=== PATIENT | male | born 1980 | race Caucasian/White ===

== ENCOUNTER 2019-11-03 11:46 | Emergency (ER) | payer OTHER ==
[~2019-11-03] VITALS: Ht 177.8 cm; Wt 102.7 kg
[2019-11-03 12:01] VITALS: BP 125/91
--- NOTE | 2019-11-03 14:46 | NUR ---
NA X 1
--- NOTE | 2019-11-03 14:57 | NUR ---
INFORMED BY REGISTRATION STAFF THAT PT SIGNED REQUEST FOR DC FROM TRIAGE. PT LEFT PRIOR TO THIS RN BEING ABLE TO DISCUSS RISKS.
== END 2019-11-03 15:01 | disposition left against medical advice (07) ==
LOC: ED 14:55
DX: M54.9 Dorsalgia, unspecified (principal); Z53.21 Procedure and treatment not carried out due to patient leaving prior to being seen by health care provider

== ENCOUNTER → 2019-11-03 | Outpatient (CLI) | payer OTHER | END | disposition home or self-care (01) | LOC: CFH 10:32 | PROVIDERS: ATTEND Nurse Practitioner | DX: M54.5 Low back pain (principal) | CPT/HCPCS: 74176 ==

== ENCOUNTER → 2020-08-28 | Outpatient (CLI) | payer OTHER | END | disposition home or self-care (01) | LOC: CVU 12:34 | PROVIDERS: ATTEND Nurse Practitioner Family | DX: I11.9 Hypertensive heart disease without heart failure (principal) | CPT/HCPCS: 93306 ==

== ENCOUNTER 2021-01-10 08:22 | Day surgery (SDC) | payer OTHER ==
[2021-01-08 13:05] LABS: CHLORIDE 106 mmol/L (98-107)
[2021-01-08 13:12] LABS: ALANINE AMINOTRANSFERASE 22 U/L (12-78); ALBUMIN 4.2 g/dL (3.4-5.0); ALKALINE PHOSPHATASE 97 U/L (45-117); ANION GAP 4 mmol/L (5-15); BILIRUBIN,TOTAL 0.4 mg/dL (0.2-1.0); CALCIUM 9.8 mg/dL (8.5-10.1); CREATININE 0.89 mg/dL (0.7-1.3); TOTAL PROTEIN 7.5 g/dL (6.4-8.2)
[~2021-01-10] VITALS: Ht 177.8 cm; Wt 96.4 kg
[~2021-01-10 08:22] MED LIST: AMLO1CAP42 PO; BUPR-173 PO
[2021-01-10 08:48] VITALS: BP 116/72
[2021-01-10] MEDS ORDERED: CHLORHEXIDINE 15 ML UDC ONE (08:52)
[2021-01-10] MEDS ORDERED: LACTATED RINGERS 1,000 ML IV SCH (09:00)
[2021-01-10] MEDS ORDERED: CHLORHEXIDINE 15 ML UDC PO ONE (09:00)
[2021-01-10] MEDS ORDERED: BUPIVACAINE/PF 0.5% ONE (09:17)
[2021-01-10] MEDS ORDERED: FENTANYL PF 250 MCG/5ML ONE (09:55)
[2021-01-10] MEDS ORDERED: MIDAZOLAM 1 MG/ML, 2ML ONE (09:55)
[2021-01-10] MEDS ORDERED: PROPOFOL 10 MG/ML, 20ML ONE (09:58)
[2021-01-10] MEDS ORDERED: ROCURONIUM 10MG/ML,5ML ONE (10:00)
[2021-01-10] MEDS ORDERED: CEFOTETAN 2 GM ONE (10:00)
[2021-01-10] MEDS ORDERED: KETOROLAC 30 MG/1 ML ONE (10:04)
[2021-01-10] MEDS ORDERED: DEXAMETHASONE 4 MG/ML, 1ML ONE (10:27)
[2021-01-10] MEDS ORDERED: PROMETHAZINE 25 MG/ML, 1ML IVPush PRN (10:30)
[2021-01-10] MEDS ORDERED: OXYcodone 5 MG/5 ML ORAL.SOL UDC PO PRN (10:30)
[2021-01-10] MEDS ORDERED: LABETALOL 5MG/ML, 20ML IV PRN (10:30)
[2021-01-10] MEDS ORDERED: HYDROmorphone 1 MG/ML, 1ML INJ IVPush PRN (10:30)
[2021-01-10] MEDS ORDERED: ONDANSETRON 2MG/ML, 2ML IVPush PRN (10:30)
[2021-01-10] MEDS ORDERED: ACETAMINOPHEN 325 MG TABLET PO PRN (10:30)
[2021-01-10] MEDS ORDERED: MEPERIDINE/PF 25MG/0.5ML IVPush PRN (10:30)
[2021-01-10] MEDS ORDERED: hydrALAzine 20 MG/ML, 1ML IV PRN (10:30)
[2021-01-10] MEDS ORDERED: FENTANYL PF 100 MCG/2ML IV PRN (10:30)
[2021-01-10] MEDS ORDERED: ONDANSETRON 2MG/ML, 2ML ONE (10:45)
[2021-01-10] MEDS ORDERED: BUPIVACAINE/PF 0.5% INFIL ONE (10:47)
== END 2021-01-10 12:35 | disposition home or self-care (01) ==
LOC: OUT 08:22
PROVIDERS: ATTEND Surgery
DX: K35.890 Other acute appendicitis without perforation or gangrene (principal); I10 Essential (primary) hypertension; F32.9 Major depressive disorder, single episode, unspecified; Z20.822 Contact with and (suspected) exposure to COVID-19; Z98.890 Other specified postprocedural states; Z87.891 Personal history of nicotine dependence; Z79.899 Other long term (current) drug therapy
CPT/HCPCS: 36415; 44970; 80053; 88304; J1100; J1885; J2250; J2405; J2704; J3010; J7120; U0003